=== PATIENT | female | born 1955 | race American Indian/Alaskan Native ===

== ENCOUNTER 2018-05-02 14:05 | Day surgery (SDC) | payer OTHER ==
[2018-05-02] MEDS ORDERED: ANCEF/STERILE WATER 2 GM/20 ML IV NR (15:00)
--- NOTE | 2018-05-02 15:11 | Anesthesia Day of Surgery ---
Anesthesia Day of Surgery - Day of Surgery Patient Examined: Yes Patient H&P Reviewed: Yes Patient is NPO: Yes
--- NOTE | 2018-05-02 15:11 | Anesthesia Consultation ---
Anesthesia Consult and Med Hx Date of service: 05/02/18 - Airway Anesthetic Teeth Evaluation: Dentures (top full, bottom partial) ROM Head & Neck: Adequate Mental/Hyoid Distance: Adequate Mallampati Class: Class III Intubation Access Assessment: Possibly Difficult - Pulmonary Exam CTA: Yes - Cardiac Exam Cardiac Exam: RRR - Pre-Operative Health Status ASA Pre-Surgery Classification: ASA3 Proposed Anesthetic Plan: General - Pulmonary Hx Smoking: Yes (1/2 PPD x 40yrs; quit 4 yrs) Hx Asthma: No SOB: No COPD: No - Cardiovascular System Hx Hypertension: No Hx Heart Attack/AMI: No - Central Nervous System Hx Seizures: No CVA: No Hx Psychiatric Problems: No - Gastrointestinal Hx Gastroesophageal Reflux Disease: No - Endocrine Hx Renal Disease: No Hx Liver Disease: No Hx Insulin Dependent Diabetes: No Hx Hypothyroidism: Yes - Other Systems Hx Obesity: Yes
[2018-05-02 15:17] LABS: Hematocrit 40.3 % (30.3-42.9); Hemoglobin 13.5 gm/dl (10.1-14.3); Mean Corpuscular HGB Conc 34 % (30-34); Mean Corpuscular Hemoglobin 30 pg (28-32); Mean Corpuscular Volume 90 fl (79-97); Platelet Count 287 K/mm3 (140-440); Red Blood Count 4.46 M/mm3 (3.65-5.03); Red Cell Distribution Width 13.2 % (13.2-15.2)
[2018-05-02] MEDS ORDERED: LACTATED RINGERS 1,000 ML IV SCH (16:00)
[2018-05-02] MEDS ORDERED: VERSED IV NR (16:00)
[2018-05-02 16:22] LABS: RBC Morphology Normal; Total Cells Counted 100
[2018-05-02] MEDS ORDERED: XYLOCAINE MPF 2% ONE (16:51)
[2018-05-02] MEDS ORDERED: DILAUDID ONE (16:51)
[2018-05-02] MEDS ORDERED: DIPRIVAN 10 MG/ML IV ONE (16:52)
[2018-05-02] MEDS ORDERED: PROAIR IH ONE (17:49)
[2018-05-02] MEDS ORDERED: NACL 0.9% IR ONE (17:51)
[2018-05-02] MEDS ORDERED: SUBLIMAZE ONE ×2 (18:08→18:17)
[2018-05-02] MEDS ORDERED: APRESOLINE ONE (18:18)
[2018-05-02] MEDS ORDERED: DECADRON ONE (18:25)
[2018-05-02] MEDS ORDERED: ZOFRAN ONE ×2 (18:26→21:04)
[2018-05-02] MEDS ORDERED: PERCOCET 5/325 PO PRN (19:25)
[2018-05-02] MEDS: DILAUDID IV PRN ×4 (20:15→20:45)
[2018-05-02] MEDS ORDERED: BENADRYL IV PRN (20:57)
[2018-05-02] MEDS ORDERED: ZOFRAN IV PRN (20:58)
[2018-05-02] MEDS ORDERED: BENADRYL ONE (21:04)
--- NOTE | 2018-05-02 21:30 | Operative Report ---
SERVICE: Plastic Surgery. PREOPERATIVE DIAGNOSIS: Macromastia. POSTOPERATIVE DIAGNOSIS: Macromastia. PROCEDURE: Bilateral reduction mammoplasty. SURGEON: Kenyon Zuniga MD [employer] MACHINE OPERATOR: Yonas Palmer CSA FINDINGS: 1340 g removed from the right breast and 1740 g removed from the left breast. DESCRIPTION OF PROCEDURE: The patient was brought to the operating room and placed on the table in supine position. Following administration of general anesthesia, bilateral breasts were prepped with Betadine solution, draped in usual sterile manner. A #10 blade scalpel was used to make a circumareolar skin incision followed by de-epithelization of inferior dermal pedicle. Modified Tyler pattern skin markings were incised with scalpel, deepened through subcutaneous fat and breast tissue using electrocautery. Skin flaps were raised in standard manner as was fashioning of an inferior central mound pedicle. Breast tissue resected, sent to pathology as specimen. Hemostasis was controlled using electrocautery. Closure was performed over 10 mm MARIA DE JESUS drain using interrupted and running subcuticular 2-0 Monocryl sutures. Mastisol, Steri-Strips, and sterile dressings applied. The patient tolerated the procedure well and returned to recovery room in stable condition. JOB# [id number] FTW/NTS
[2018-05-02 22:22] VITALS: BP 117/57
== END 2018-05-02 22:18 | disposition home or self-care (01) ==
LOC: OR 14:05
PROVIDERS: ATTEND Plastic Surgery
DX: N60.12 Diffuse cystic mastopathy of left breast (principal); N60.11 Diffuse cystic mastopathy of right breast; N62 Hypertrophy of breast; M19.90 Unspecified osteoarthritis, unspecified site; E03.9 Hypothyroidism, unspecified; E66.9 Obesity, unspecified; Z68.41 Body mass index [BMI] 40.0-44.9, adult; Z90.710 Acquired absence of both cervix and uterus; Z87.891 Personal history of nicotine dependence; Z98.890 Other specified postprocedural states; Z79.899 Other long term (current) drug therapy; Z90.49 Acquired absence of other specified parts of digestive tract
CPT/HCPCS: 19318; 36415; 85007; 85025; 88305; J0360; J0690; J1100; J1170; J1200; J2250; J2405; J2704; J3010; J7120